=== PATIENT | female | born 1965 | race Caucasian/White ===

== ENCOUNTER 2017-04-02 11:16 | Observation (INO) | payer BC ==
[~2017-04-02] VITALS: Ht 162.6 cm; Wt 59.0 kg
[~2017-04-02 11:16] MED LIST: MAXALT10 MG PO; METHADONE5 MG PO; PERCOCET 7.51 TABLET PO
[2017-04-02 11:53] LABS: HEMATOCRIT 42.9 % (36.0-46.0); MCH 27.3 PG (29.0-34.0); MCHC 31.5 G/DL (30.0-36.0); MCV 86.8 FL (83-99); MEAN PLAT.VOLUME 9.6 uM^3 (9.5-12.4); PLATELET COUNT 242 K/uL (156-360); RBC DIS.WIDTH-CV 13.9 % (11.8-14.6); RBC DIS.WIDTH-SD 44.3 % (39-53); RED BLOOD COUNT 4.94 M/uL (3.80-5.20); WHITE BLOOD COUNT 7.1 K/uL (4.1-10.2)
[2017-04-02 12:01] LABS: CHLORIDE 102 mEq/L (99-109); POTASSIUM 3.1 mEq/L (3.7-5.4); SODIUM 145 mEq/L (136-147)
[2017-04-02 12:02] LABS: GLUCOSE 117 mg/dL (70-99)
[2017-04-02 12:04] LABS: ANION GAP 13 MEQ/L (2-14)
[2017-04-02 12:06] LABS: GFR ESTIMATE (CALCULATED) > 59 mL/min/
[2017-04-02 12:07] LABS: UREA NITROGEN (BUN) 14 mg/dL (9-23)
[2017-04-02 12:13] LABS: TROP-I INTERPRETATION NEGATIVE; TROPONIN-I < 0.01 ng/mL (0.0-0.30)
[2017-04-02 18:21] VITALS: BP 156/86
[2017-04-02 20:00] VITALS: BP 149/71
[2017-04-03] VITALS: BP 125/75
[2017-04-03 04:00] VITALS: BP 116/71
[2017-04-03 06:14] LABS: HEMATOCRIT 37.5 % (36.0-46.0); MCH 28.3 PG (29.0-34.0); MCHC 32.5 G/DL (30.0-36.0); MEAN PLAT.VOLUME 9.9 uM^3 (9.5-12.4); PLATELET COUNT 204 K/uL (156-360); RBC DIS.WIDTH-SD 44.9 % (39-53); RED BLOOD COUNT 4.31 M/uL (3.80-5.20)
[2017-04-03 06:17] LABS: WHITE BLOOD COUNT 4.8 K/uL (4.1-10.2)
[2017-04-03 06:48] LABS: ANION GAP 6 MEQ/L (2-14); CHLORIDE 106 MEQ/L (99-109); GFR ESTIMATE (CALCULATED) > 59 mL/min/; GLUCOSE 151 mg/dL (70-99); SAMPLE HEMOLYSIS CHECK 0; SAMPLE ICTERIC CHECK 0; SAMPLE LIPEMIA CHECK 0; SODIUM 143 MEQ/L (136-147); UREA NITROGEN (BUN) 12 mg/dL (9-23)
[2017-04-03 06:56] LABS: POTASSIUM 4.8 MEQ/L (3.7-5.4)
[2017-04-03 07:49] VITALS: BP 122/72
[2017-04-03 11:25] VITALS: BP 132/82
[2017-04-03] MEDS ORDERED: LEVAQUIN500 MG PO (12:48)
[2017-04-03] MEDS ORDERED: ADVAIR HFA120 INHALA IH (12:48)
[2017-04-03] MEDS ORDERED: DELTASONE20 M1 PO (12:50)
[2017-04-03] MEDS ORDERED: VENTOLIN HFA18 GM IH (12:51)
== END 2017-04-03 14:40 | disposition home or self-care (01) ==
LOC: EME 11:16 → 5SOUTH 13:16 → EDOF 13:16 → 5SOUTH 13:16
PROVIDERS: Internal Medicine
DX: J44.1 Chronic obstructive pulmonary disease with (acute) exacerbation (principal); J96.01 Acute respiratory failure with hypoxia; E87.6 Hypokalemia; G89.4 Chronic pain syndrome; G43.909 Migraine, unspecified, not intractable, without status migrainosus; F17.210 Nicotine dependence, cigarettes, uncomplicated
CPT/HCPCS: 71020; 80048; 84484; 85027; 93005; 94640; 94640 76; 94799; 99202; 99281; 99285; G0378; J1650; J2930

== ENCOUNTER 2017-05-13 08:12 | Day surgery (SDC) | payer BC ==
[~2017-05-13] VITALS: Ht 160 cm; Wt 56.7 kg
[~2017-05-13 08:12] MED LIST changes: +ADVAIR HFA120 INHALA IH; +DELTASONE20 M1 PO; +LEVAQUIN500 MG PO; +VENTOLIN HFA18 GM IH
== END 2017-05-13 09:39 | disposition home or self-care (01) ==
LOC: PAIN 08:12 → SDC 08:30 → PAIN 08:30
DX: M47.816 Spondylosis without myelopathy or radiculopathy, lumbar region (principal); M54.5 Low back pain; M46.1 Sacroiliitis, not elsewhere classified; I45.10 Unspecified right bundle-branch block; M51.36 Other intervertebral disc degeneration, lumbar region; K21.9 Gastro-esophageal reflux disease without esophagitis; M79.1 Myalgia; J44.9 Chronic obstructive pulmonary disease, unspecified; Z79.891 Long term (current) use of opiate analgesic; F17.210 Nicotine dependence, cigarettes, uncomplicated
CPT/HCPCS: J1030; J2250; J3010; S0020

== ENCOUNTER 2017-05-20 08:14 | Day surgery (SDC) | payer BC ==
[~2017-05-20] VITALS: Ht 160 cm; Wt 56.7 kg
== END 2017-05-20 09:45 | disposition home or self-care (01) ==
LOC: PAIN 08:14 → SDC 08:30 → PAIN 08:30
DX: M47.816 Spondylosis without myelopathy or radiculopathy, lumbar region (principal); M54.5 Low back pain; M51.36 Other intervertebral disc degeneration, lumbar region; M46.1 Sacroiliitis, not elsewhere classified; I45.10 Unspecified right bundle-branch block; M79.1 Myalgia; Z79.891 Long term (current) use of opiate analgesic; F17.210 Nicotine dependence, cigarettes, uncomplicated
CPT/HCPCS: J1030; J2250; J3010; S0020